=== PATIENT | female | born 1990 | race Caucasian/White ===

== ENCOUNTER → 2025-05-15 15:15 | Outpatient (BNVA) | payer OTHER, SELFPAY | PROVIDERS: PCP Nurse Practitioner Family; Visit Provider Nurse Practitioner Family | DX: M16.0 Bilateral primary osteoarthritis of hip (principal); M54.9 Dorsalgia, unspecified; G89.29 Other chronic pain | CPT/HCPCS: 73502 ==

== ENCOUNTER 2025-05-24 09:59 | Outpatient (RCR) | payer OTHER, SELFPAY | END 2025-06-04 23:59 | disposition home or self-care (01) | LOC: WPT 09:59 | PROVIDERS: PCP Nurse Practitioner Family; Visit Provider Nurse Practitioner Family | DX: M25.551 Pain in right hip (principal); G89.29 Other chronic pain | CPT/HCPCS: 97161 ==

== ENCOUNTER → 2025-06-06 13:25 | Outpatient (BNVA) | payer OTHER, SELFPAY | PROVIDERS: PCP Nurse Practitioner Family; Visit Provider Nurse Practitioner Family | DX: Z79.01 Long term (current) use of anticoagulants (principal) | CPT/HCPCS: 85610 ==

== ENCOUNTER 2025-07-05 09:00 | Outpatient (RCR) | payer OTHER, SELFPAY | END 2025-07-05 23:59 | disposition home or self-care (01) | LOC: WPT 09:00 | PROVIDERS: PCP Nurse Practitioner Family; Visit Provider Nurse Practitioner Family | DX: M54.9 Dorsalgia, unspecified (principal); M25.551 Pain in right hip | CPT/HCPCS: 97110; 97112; 97116; 97530 ==